=== PATIENT | male | born 1960 | race Caucasian/White ===

== ENCOUNTER 2017-06-13 14:04 | Emergency (ER) | payer MEDICAID, OTHER ==
[~2017-06-13] VITALS: Ht 180.3 cm; Wt 91.2 kg
[2017-06-13 14:25] VITALS: BP 139/86
[2017-06-13] MEDS ORDERED: Acetaminophen 500mg (ES) tab ORAL ONE (14:30)
[2017-06-13] MEDS ORDERED: Tetanus/Diptheria/Pertussis Vaccine 0.5ml Syr IM ONE (14:30)
[2017-06-13] MEDS ORDERED: Lidocaine 1% 10mg/ml/Epi 0.005mg/ml 30ml vial INJ ONE (14:30)
--- NOTE | 2017-06-13 14:34 | Emergency Room Report ---
History of Present Illness General Chief Complaint: Head, Face, Neck Trauma Source: Patient Present Illness HPI 57-year-old male, presenting with a fall. Patient states that he tripped on the sidewalk, hit his head. No LOC. The patient states that he sustained a deep laceration. It was bleeding a lot. States that he takes Motrin but does not take any other blood thinners. Also complaining of slight knee pain, had an abrasion to his right knee. Able to walk. No nausea no vomiting no blurry vision Allergies: Coded Allergies: No Known Allergies (Unverified , 06/13/17) Patient History Past Medical History: see triage record Past Surgical History: none Pertinent Family History: none Reviewed Nursing Documentation: PMH: Agreed, PSxH: Agreed Nursing Documentation-PMH Past Medical History: No History, Except For Hx Hypertension: Yes Review of Systems All Other Systems: negative except mentioned in HPI Physical Exam Vital Signs Date Time Temp Pulse Resp B/P (MAP) Pulse Ox O2 Delivery O2 Flow Rate FiO2 06/13/17 14:15 98.6 99 15 138/76 99 Room Air 98.6 Sp02 EP Interpretation: reviewed, normal General Appearance: normal inspection, well appearing, no apparent distress, alert, GCS 15, non-toxic Head: normocephalic - R sided forehead hematoma with ~3cm deep laceration above R eyebrow. minimal bleeding Eyes: bilateral eye normal inspection, bilateral eye PERRL, bilateral eye EOMI ENT: normal ENT inspection, normal pharynx, normal voice, moist mucus membranes Neck: normal inspection, full range of motion, supple Respiratory: normal inspection, lungs clear, normal breath sounds, no respiratory distress, no retraction, no wheezing, speaking full sentences, chest symmetrical Cardiovascular #1: normal inspection, regular rate, rhythm, normal capillary refill Cardiovascular #2: 2+ radial (R), 2+ radial (L) Gastrointestinal: normal inspection, non tender, soft, non-distended, no guarding Genitourinary: no CVA tenderness Musculoskeletal: back normal, normal range of motion, non-tender, other - abrasion to R knee, FULL range of motion knee and all ext. Neurologic: normal inspection, alert, oriented x3, responsive, [employer] III-XII nml as tested, motor strength/tone normal, sensory intact, normal gait, speech normal Psychiatric: normal inspection, judgement/insight normal, memory normal Skin: normal inspection, normal color, no rash, warm/dry, well hydrated, normal turgor Procedures Critical Care Time Critical Care Time Laceration/Wound Repair Laceration/Wound Repair : Consent: Verbal Wound Location: face Wound's Depth, Shape: into muscle Wound Length (cm): 4 Wound Explored: clean Irrigated w/ Saline (ccs): 500 Betadine Prep?: Yes Anesthesia: Lidocaine w/ Epi Volume Anesthetic (ccs): 8 Wound Repaired With: sutures Suture Size/Type: 5:0, proline Number of Sutures: 6 Layer Closure?: Yes Sterile Dressing Applied?: Yes Patient Tolerated: Well Complications: None Medical Decision Making Diagnostic Impression: Primary Impression: Closed head injury Additional Impression: Facial laceration ER Course 57-year-old male, mechanical fall, facial laceration and closed head injury Differential diagnosis Laceration, rule out intracranial bleed Plan T. Dep, pain control, laceration repair, CT head ER course: Laceration repaired, bacitracin with sterile dressing applied. Tdap given. CT head neg for acute hemorrhage - has old calcifications likely from old hemorrhage vs. infarct, DW radiology neurologically intact in ed, only c/o pain to laceration. no PERALES, n/v observed in ED, stable for DC home Disposition: Patient will be discharged home. Strict return precautions discussed with patient such as worsening headache, blurry vision, motor/sensory weakness, n/v, increasing bleeding to site, purulent drainage, rapid swelling or redness to area. Patient verbalizes understanding. Patient sis informed of inevitable scar that will result from laceration despite repair. Pt instructed to avoid sun exposure to decrease the appearance of scar. Patient instructed to return to ED or their primary care doctor in 5-7 days for removal of sutures. Patient agrees with plan. Please note that this Emergency Department Report was dictated using [employer] nurse technology software, occasionally this can lead to erroneous entry secondary to interpretation by the dictation equipment Laboratory Tests Test 06/13/17 15:02 White Blood Count 6.7 K/UL (4.8-10.8) Red Blood Count 5.13 M/UL (4.70-6.10) Hemoglobin 15.6 G/DL (14.2-18.0) Hematocrit 45.6 % (42.0-52.0) Mean Corpuscular Volume 89 FL (80-99) Mean Corpuscular Hemoglobin 30.5 PG (27.0-31.0) Mean Corpuscular Hemoglobin Concent 34.2 G/DL (32.0-36.0) Red Cell Distribution Width 12.0 % (11.6-14.8) Platelet Count 201 K/UL (150-450) Mean Platelet Volume 8.2 FL (6.5-10.1) Neutrophils (%) (Auto) 68.4 % (45.0-75.0) Lymphocytes (%) (Auto) 22.9 % (20.0-45.0) Monocytes (%) (Auto) 5.4 % (1.0-10.0) Eosinophils (%) (Auto) 2.2 % (0.0-3.0) Basophils (%) (Auto) 1.1 % (0.0-2.0) Prothrombin Time 10.0 SEC (9.30-11.50) Prothrombin Time INR 1.0 (0.9-1.1) PTT 26 SEC (23-33) Sodium Level 138 MMOL/L (136-145) Potassium Level 4.1 MMOL/L (3.5-5.1) Chloride Level 102 MMOL/L (98-107) Carbon Dioxide Level 32 MMOL/L (21-32) Anion Gap 4 mmol/L (5-15) L Blood Urea Nitrogen 17 mg/dL (7-18) Creatinine 1.1 MG/DL (0.55-1.30) Estimate Glomerular Filtration Rate > 60 mL/min (>60) Glucose Level 161 MG/DL (74-106) H Calcium Level 9.1 MG/DL (8.5-10.1) Total Bilirubin 0.4 MG/DL (0.2-1.0) Aspartate Amino Transferase (AST) 16 U/L (15-37) Alanine Aminotransferase (ALT) 31 U/L (12-78) Alkaline Phosphatase 60 U/L (46-116) Troponin I 0.000 ng/mL (0.000-0.056) Total Protein 7.1 G/DL (6.4-8.2) Albumin 3.6 G/DL (3.4-5.0) Globulin 3.5 g/dL Albumin/Globulin Ratio 1.0 (1.0-2.7) CT/MRI/US Diagnostic Results CT/MRI/US Diagnostic Results : Imaging Test Ordered: CT Head Impression Findings: There is a 1 cm angular shaped cystic focus in the right lentiform nucleus consistent with an old lacunar infarct versus old bleed. At the edges of the old infarct there is heterogeneous, mild high attenuation with some of the high attenuation approaching that of calcium. There is no mass effect or edema. The right lateral ventricle is slightly enlarged which is probably compensatory dilatation due to the volume loss from the infarct. The remainder of the exam is normal. The cortical sulci, basal cisterns and ventricles are normal in appearance. There osseous structures are normal in appearance. Paranasal sinuses are clear. 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 Some residual blood from an old bleed might be considered but much less likely. Comparison to prior studies would be helpful if such studies are available. No mass effect or edema. Last Vital Signs Date Time Temp Pulse Resp B/P (MAP) Pulse Ox O2 Delivery O2 Flow Rate FiO2 06/13/17 14:15 98.6 99 15 138/76 99 Room Air 98.6 Disposition: HOME, SELF-CARE Condition: Improved Patient Instructions: Facial Laceration, [id number], Facial or Scalp Contusion, [id number] Additional Instructions: PLEASE FOLLOW UP WITH YOUR DOCTOR OR COME BACK TO THE ER FOR SUTURE REMOVAL IN 5 -7 DAYS Raz Wills M.D. Jun 13, 2017 14:33
--- NOTE | 2017-06-13 15:03 | Diagnostic Imaging Report ---
Indication: Headache Technique: Contiguous 5 mm thick transaxial imaging of the head obtained in a Siem[employer] Sensation [address] scanner. Soft tissue and bone windows generated. Automatic Exposure Control was utilized. Total Dose length Product (DLP): 1495.[address] Dose Index Volume (CTDIvol): 70.38 mGy Comparison: none Findings: There is a 1 cm angular shaped cystic focus in the right lentiform nucleus consistent with an old lacunar infarct versus old bleed. At the edges of the old infarct there is heterogeneous, mild high attenuation with some of the high attenuation approaching that of calcium. There is no mass effect or edema. The right lateral ventricle is slightly enlarged which is probably compensatory dilatation due to the volume loss from the infarct. The remainder of the exam is normal. The cortical sulci, basal cisterns and ventricles are normal in appearance. There osseous structures are normal in appearance. Paranasal sinuses are clear. 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 Some residual blood from an old bleed might be considered but much less likely. Comparison to prior studies would be helpful if such studies are available. No mass effect or edema. The CT scanner at [facility] is accredited by the [employer] and the scans are performed using dose optimization techniques as appropriate to a performed exam including Automatic Exposure control.
[2017-06-13 15:13] LABS: BASOPHILS % (AUTO) 1.1 % (0.0-2.0); EOSINOPHILS % (AUTO) 2.2 % (0.0-3.0); HEMATOCRIT 45.6 % (42.0-52.0); HEMOGLOBIN 15.6 G/DL (14.2-18.0); LYMPHOCYTES % (AUTO) 22.9 % (20.0-45.0); MEAN CORPUSCULAR VOLUME 89 FL (80-99); MONOCYTES % (AUTO) 5.4 % (1.0-10.0); NEUTROPHILS % (AUTO) 68.4 % (45.0-75.0); PLATELET COUNT 201 K/UL (150-450); RED BLOOD COUNT 5.13 M/UL (4.70-6.10); WHITE BLOOD COUNT 6.7 K/UL (4.8-10.8)
--- NOTE | 2017-06-13 15:18 | Diagnostic Imaging Report ---
Indication: Dyspnea Comparison: None A single view chest radiograph was obtained. Findings: Cardiomediastinal appearance is within normal limits for age. Pulmonary vascularity is appropriate. The diaphragmatic contour is smooth and costophrenic angles are sharp. No pleural effusions are identified. The bones are osteopenic. Impression: No acute findings
[2017-06-13 15:38] LABS: ANION GAP 4 mmol/L (5-15); BLOOD UREA NITROGEN 17 mg/dL (7-18); CALCIUM 9.1 MG/DL (8.5-10.1); CARBON DIOXIDE 32 MMOL/L (21-32); CHLORIDE 102 MMOL/L (98-107); CREATININE 1.1 MG/DL (0.55-1.30); POTASSIUM 4.1 MMOL/L (3.5-5.1); SODIUM 138 MMOL/L (136-145)
[2017-06-13 15:42] LABS: ALANINE AMINOTRANSFERASE 31 U/L (12-78); ALBUMIN 3.6 G/DL (3.4-5.0); ALKALINE PHOSPHATASE 60 U/L (46-116); ASPARTATE AMINO TRANSFERASE 16 U/L (15-37); BILIRUBIN,TOTAL 0.4 MG/DL (0.2-1.0)
[2017-06-13] MEDS ORDERED: Bacitracin Oint UD TOPIC ONE ×2 (15:45→16:00)
[2017-06-13 15:50] VITALS: BP 141/91
[2017-06-13] MEDS ORDERED: Hydrogen Peroxide 473ml Bottle TOPIC ONE ×2 (15:53→16:00)
[2017-06-13 16:18] VITALS: BP 141/91
== END 2017-06-13 16:21 | disposition home or self-care (01) ==
LOC: EDBD 14:04 → EMR 14:45
DX: S01.111A Laceration without foreign body of right eyelid and periocular area, initial encounter (principal); W01.0XXA Fall on same level from slipping, tripping and stumbling without subsequent striking against object, initial encounter; Y92.480 Sidewalk as the place of occurrence of the external cause; Z23 Encounter for immunization; I10 Essential (primary) hypertension; Z86.73 Personal history of transient ischemic attack (TIA), and cerebral infarction without residual deficits
CPT/HCPCS: 12052; 36415; 70450; 71045; 80053; 84484; 85025; 85610; 85730; 86850; 86900; 86901; 90471; 90715; 99291; Z7502